=== PATIENT | male | born 1960 | race Caucasian/White ===

== ENCOUNTER → 2020-05-11 08:53 | Outpatient (CLI) | payer OTHER, SELFPAY ==
[2020-05-11 09:53] LABS: COVID19 -Nasal RAPID Negative (Negative)
== END ==
PROVIDERS: Visit Provider Nurse Practitioner
DX: Z20.822 Contact with and (suspected) exposure to COVID-19 (principal)
CPT/HCPCS: 87635

== ENCOUNTER 2021-03-07 14:58 | Emergency (ER) | payer OTHER, SELFPAY ==
[2021-03-07] VITALS (10 sets, daily range): BP systolic 115–158; BP diastolic 65–91; PULSE 43–54; RESP 10–19; TEMP 36.5; O2SAT 93–98; BMI 28.2
--- NOTE | 2021-03-07 15:32 | DI.RAD.S_ITS ---
PROCEDURE: XR CHEST 1V INDICATIONS: chest pain TECHNIQUE: One view of the chest was acquired. COMPARISON: None. FINDINGS: Surgical changes and devices: None. Lungs and pleura: No consolidation, pleural effusions or pneumothorax. Mediastinum: Mediastinal contours appear normal. Heart size is normal. Bones and chest wall: No suspicious bony lesions. Overlying soft tissues appear unremarkable. IMPRESSION: No acute cardiopulmonary abnormality. Dictated by: Federico Lockett M.D. on 03/07/2021 at 15:44 Approved by: Federico Lockett M.D. on 03/07/2021 at 15:46
[2021-03-07 15:58] LABS: Add Manual Diff / Slide Review NO; Basophils Absolute Auto 100 /uL (0-100); Basophils Percent Auto 1.4 % (0-2); Eosinophils Absolute Auto 300 /uL (0-450); Eosinophils Percent Auto 7.6 % (2-4); Hematocrit 37.6 % (41-53); Hemoglobin 12.8 g/dL (13.5-17.5); Lymphocytes Absolute Auto 1100 /uL (1100-4500); Mean Corpuscular HGB Conc 34.1 % (30-36); Mean Corpuscular Hemoglobin 31.3 PG (26-34); Monocytes Absolute Auto 400 /uL (0-900); Monocytes Percent Auto 11.9 % (3-14); Neutrophils Absolute Auto 1900 /uL (1500-7000); Neutrophils Percent Auto 51.1 % (50-75); Platelet Count 198 X10^3/uL (150-400); Red Blood Cell Count 4.09 X10^6/uL (4.5-5.9); Red Cell Distribution Width 13.3 % (11.6-14.8); White Blood Cell Count 3.8 X10^3/uL (4.5-11.0)
[2021-03-07 16:22] LABS: Alanine Aminotransferase 21 IU/L (<50); Albumin 4.1 g/dL (3.5-5.0); Albumin Globulin Ratio 1.3 (1.0-2.8); Alkaline Phosphatase 40 U/L (38-126); Aspartate Aminotransferase 27 IU/L (17-59); BUN Creatinine Ratio 23.9 (6-22); Bilirubin Total 0.4 mg/dL (0.2-1.3); Blood Urea Nitrogen 17 mg/dL (9-20); Calcium 9.5 mg/dL (8.4-10.2); Carbon Dioxide 27 mmol/L (22-32); Chloride 106 mmol/L (98-107); Creatine Kinase 107 U/L (55-170); Estimated Glomerular Filt Rate > 60.0 mL/min (>60); Globulin 3.1 g/dL (1.7-4.1); Glucose 114 mg/dL (80-110); HEMOLYSIS < 15 (0-50); Lipase 80 U/L (23-300); Magnesium 1.9 mg/dL (1.6-2.3); Potassium 3.9 mmol/L (3.4-5.1); Sodium 138 mmol/L (137-145); Total Protein 7.2 g/dL (6.3-8.2)
[2021-03-07 16:31] LABS: Troponin I < 0.012 ng/mL (0.01-0.034)
[2021-03-07 16:37] LABS: CKMB % Relative Index 1.3 % (1.5-5.0); Creatine Kinase MB 1.35 ng/mL (<2.37)
--- NOTE | 2021-03-07 18:54 | ED.ARRPALP ---
HPI - Arrhythmia/Palpitations General Chief Complaint: Arrhythmia/Palpitations Stated Complaint: IRREGULAR HEART BEAT Time Seen by Provider: 03/07/21 18:06 Source: patient Mode of arrival: Ambulatory Limitations: no limitations History of Present Illness HPI narrative: Patient is a 60-year-old male who is here for evaluation of palpitations. He recently returned from a vacation. Was tested for COVID less than 36 hours ago. He denies chest pain. Has had some shortness of breath with exertion but this is not all the time. He also feels like his heart rate has been fluctuating. Has not tried anything for his symptoms prior to arrival. The time of my evaluation he was not having symptoms. Related Data Home Medications Medication Instructions Recorded Confirmed No Known Home Medications 05/11/20 05/11/20 Allergies Allergy/AdvReac Type Severity Reaction Status Date / Time No Known Drug Allergies Allergy Unverified 05/11/20 09:25 Review of Systems Constitutional Constitutional: Denies fever(s) Cardiovascular Cardiovascular: Denies chest pain, Denies lightheadedness and Reports slow heart rate Comments: Palpitations Respiratory Respiratory: Reports as per HPI and Reports system reviewed and no additional complaints, except as documented Gastrointestinal Gastrointestinal: Reports system reviewed and no additional complaints, except as documented Musculoskeletal Musculoskeletal: Reports system reviewed and no additional complaints, except as documented Integumentary/Breasts Skin/Breast: Reports system reviewed and no additional complaints, except as documented Hematologic/Lymphatic On Anticoagulants: No Patient History Medical History No significant medical problems Social History Smoking Status: Never smoker Smoking Status: Never smoker Exam Initial Vital Signs Initial Vital Signs: Vital Signs Pulse Rate 52 L 03/07/21 15:30 Pulse Oximetry 96 03/07/21 15:30 Const General: cooperative, healthy appearing and comfortable HENMT Head: normal to inspection Resp Effort & Inspection: normal respiratory effort Cardio Rate: regular rate Rhythm: regular rhythm GI Inspection: normal to inspection Skin General: no rashes or lesions noted Neuro General: patient alert, patient awake, patient oriented x3 and moves all extremities Speech: speech normal Extrem General: normal to inspection and capillary refill normal Psych Appearance: grossly normal and well kempt Course Orders Ordered: ED Orders 01/03/22 15:32 XR chest 1V Stat EKG-12 Lead Stat 03/07/21 15:49 Complete Blood Count AUTO DIFF Stat Comprehensive Metabolic Panel Stat Lipase Stat Magnesium Stat Troponin & CK Cardiac Panel Stat Vital Signs Vital signs: Vital Signs - 8 hr 03/07/21 18:00 03/07/21 18:30 03/07/21 19:00 Pulse Rate 43 L 45 L 52 L Respiratory Rate 11 L 13 13 Blood Pressure 118/65 126/83 Pulse Oximetry 95 95 96 MDM - Arrhythmia/Palpitations Lab Data Attestation: I reviewed the patient's lab results. Result diagrams: 03/07/21 15:49 03/07/21 15:49 Labs: Lab Results 03/07/21 03/07/21 Range/Units 15:49 15:49 WBC 3.8 L (4.5-11.0) X10^3/uL RBC 4.09 L (4.5-5.9) X10^6/uL Hgb 12.8 L (13.5-17.5) g/dL Hct 37.6 L (41-53) % MCV 92.0 (80-100) fL MCH 31.3 (26-34) PG MCHC 34.1 (30-36) % RDW 13.3 (11.6-14.8) % Plt Count 198 (150-400) X10^3/uL Neut % (Auto) 51.1 (50-75) % Lymph % (Auto) 28.0 (25-40) % [place] % (Auto) 11.9 (3-14) % Eos % (Auto) 7.6 H (2-4) % Baso % (Auto) 1.4 (0-2) % Neut # (Auto) 1900 (0989-9046) /uL Lymph # (Auto) 1100 (7866-2638) /uL [place] # (Auto) 400 (0-900) /uL Eos # (Auto) 300 (0-450) /uL Baso # (Auto) 100 (0-100) /uL Sodium 138 (137-145) mmol/L Potassium 3.9 (3.4-5.1) mmol/L Chloride 106 (98-107) mmol/L Carbon Dioxide 27 (22-32) mmol/L BUN 17 (9-20) mg/dL Creatinine 0.71 (0.66-1.25) mg/dL Estimated GFR > 60.0 (>60) mL/min BUN/Creatinine Ratio 23.9 H (6-22) Glucose 114 H (80-110) mg/dL Calcium 9.5 (8.4-10.2) mg/dL Magnesium 1.9 (1.6-2.3) mg/dL Total Bilirubin 0.4 (0.2-1.3) mg/dL AST 27 (17-59) IU/L ALT 21 (<50) IU/L Alkaline Phosphatase 40 (38-126) U/L Total Creatine Kinase 107 (55-170) U/L CK-MB (CK-2) 1.35 (<2.37) ng/mL CK-MB (CK-2) Rel Index 1.3 L (1.5-5.0) % Troponin I < 0.012 (0.01-0.034) ng/mL Total Protein 7.2 (6.3-8.2) g/dL Albumin 4.1 (3.5-5.0) g/dL Globulin 3.1 (1.7-4.1) g/dL Albumin/Globulin Ratio 1.3 (1.0-2.8) Lipase 80 (23-300) U/L Imaging Data Chest x-ray: Radiologist's Impresson: [place] [address] XRay Report Signed Patient: Chano Bustos MR#: [id number] : 1960 Acct:[id number] Age/Sex: 60 / M Date of Service: 03/07/21 Loc: ED Accession Number: [id number] ?? Procedure: XR chest 1V Ordering Provider: Tram Ramos MD PROCEDURE:? XR CHEST 1V ? INDICATIONS:? chest pain ? TECHNIQUE:? One view of the chest was acquired.? ? COMPARISON:? None. ? FINDINGS:? ? Surgical changes and devices:? None.? ? Lungs and pleura:? No consolidation, pleural effusions or pneumothorax.? ? Mediastinum:? Mediastinal contours appear normal.? Heart size is normal.? ? Bones and chest wall:? No suspicious bony lesions.? Overlying soft tissues appear unremarkable.? ? IMPRESSION:? No acute cardiopulmonary abnormality. ? ? Dictated by: Federico Lockett M.D. on 03/07/2021 at 15:44 ? ? Approved by: Federico Lockett M.D. on 03/07/2021 at 15:46? ECG Data Attestation: I personally reviewed and interpreted this ECG as follows: Interpretation: Sinus rhythm Frequent PVCs First-degree AV block with a ME interval of 252 milliseconds Ventricular rate is [address] T wave changes MDM Narrative Medical decision making narrative: Blood pressure unremarkable. Does have frequent PVCs on his EKG which is most likely the cause of his symptoms. This most likely is the reason for his heart rate that fluctuates between the 40s and the 70s. Low suspicion for ACS. Low suspicion for pulmonary embolism. I feel that we can hold on further workup for now. I did discuss the frequent PVCs with the patient. Next workup needed is a Holter monitor. I discussed this with him. We discussed return precautions and follow-up instructions. He expressed understanding and agreement. Discharge Plan Departure Patient Disposition: Home Clinical Impression: Palpitations, Ventricular premature beats Instructions: Premature Ventricular Beats, Arrhythmias Activity Restrictions/Additional Instructions: I do recommend you continue all of your medications as directed. Contact your primary doctor to discuss the indications for a Holter monitor. Return to the emergency department for any new or worsening symptoms like we discussed. Prescriptions: No Action No Known Home Medications 0RF
== END 2021-03-07 19:25 | disposition home or self-care (01) ==
PROVIDERS: Emergency Medicine; Emergency Provider Emergency Medicine
DX: R00.2 Palpitations (principal); I49.3 Ventricular premature depolarization
CPT/HCPCS: 36415; 71045; 80053; 82550; 82553; 83690; 83735; 84484; 85025; 93005; 99284

== ENCOUNTER → 2021-10-31 14:23 | Outpatient (CLI) | payer OTHER, SELFPAY ==
[2021-10-31 14:52] LABS: Hematocrit 40.3 % (41-53); Hemoglobin 14.1 g/dL (13.5-17.5); Mean Corpuscular Hemoglobin 32.3 PG (26-34); Mean Corpuscular Volume 92.2 fL (80-100); Platelet Count 201 X10^3/uL (150-400); Red Blood Cell Count 4.37 X10^6/uL (4.5-5.9); Red Cell Distribution Width 13.1 % (11.6-14.8); White Blood Cell Count 4.6 X10^3/uL (4.5-11.0)
[2021-10-31 15:04] LABS: Alanine Aminotransferase 27 IU/L (<50); Albumin 4.2 g/dL (3.5-5.0); Albumin Globulin Ratio 1.2 (1.0-2.8); Alkaline Phosphatase 42 U/L (38-126); Aspartate Aminotransferase 29 IU/L (17-59); BUN Creatinine Ratio 19.5 (6-22); Bilirubin Total 0.5 mg/dL (0.2-1.3); Blood Urea Nitrogen 16 mg/dL (9-20); Carbon Dioxide 28 mmol/L (22-32); Chloride 100 mmol/L (98-107); Cholesterol 197 mg/dL (140-199); Estimated Glomerular Filt Rate > 60 mL/min (>60); Globulin 3.4 g/dL (1.7-4.1); Glucose 119 mg/dL (80-110); HDL Cholesterol 46 mg/dL (40-60); HEMOLYSIS < 15 (0-50); LDL Cholesterol Calculated 102 mg/dL (<100); Potassium 4.2 mmol/L (3.4-5.1); Sodium 136 mmol/L (137-145); Total Protein 7.6 g/dL (6.3-8.2); Triglycerides 243 mg/dL (35-150)
[2021-10-31 15:10] LABS: Hemoglobin A1C% w Est Avg Glu 6.2 % (4.0-6.0)
[2021-10-31 15:34] LABS: Prostate Specific Antigen 1.01 ng/mL (0.10-4.00)
[2021-10-31 15:35] LABS: TSH w/ Reflex to FT4 1.94 uIU/mL (0.47-4.68)
[2021-10-31 16:02] LABS: Microalbumin Urine Random 0.7 mg/dL (0-1.6)
[2021-10-31 16:03] LABS: Creatinine Urine Random 71.6 mg/dL; Microalbumi Creatinin Ratio Ur 9.7 ug/mg CR (<30)
== END ==
PROVIDERS: PCP Internal Medicine; Referring Provider Internal Medicine; Visit Provider Internal Medicine
DX: E11.69 Type 2 diabetes mellitus with other specified complication (principal); E78.2 Mixed hyperlipidemia; E78.5 Hyperlipidemia, unspecified; I10 Essential (primary) hypertension; N13.8 Other obstructive and reflux uropathy; N40.1 Benign prostatic hyperplasia with lower urinary tract symptoms
CPT/HCPCS: 36415; 80053; 80061; 82043; 82570; 83036; 84153; 84443; 85027

== ENCOUNTER → 2022-02-01 12:24 | Outpatient (CLI) | payer OTHER, SELFPAY ==
[2022-02-01 12:53] LABS: Hemoglobin A1C% w Est Avg Glu 6.4 % (4.0-6.0)
== END ==
PROVIDERS: PCP Internal Medicine; Referring Provider Internal Medicine; Visit Provider Internal Medicine
DX: E11.69 Type 2 diabetes mellitus with other specified complication (principal); E78.5 Hyperlipidemia, unspecified
CPT/HCPCS: 36415; 83036

== ENCOUNTER → 2022-03-10 08:24 | Outpatient (CLI) | payer OTHER, SELFPAY ==
--- NOTE | 2022-03-10 08:27 | DI.RAD.S_ITS ---
PROCEDURE: XR FOOT RT MIN 3V INDICATIONS: Baby toe injury TECHNIQUE: 3 views of the foot were acquired. COMPARISON: None. FINDINGS: Bones: No fractures or dislocations. No suspicious bony lesions. Soft tissues: No tibiotalar joint effusion. Achilles tendon appears normal. IMPRESSION: No acute osseous abnormality. Dictated by: Mario Pleitez M.D. on 03/10/2022 at 12:45 Approved by: Mario Pleitez M.D. on 03/10/2022 at 12:46
== END ==
PROVIDERS: PCP Internal Medicine; Referring Provider Internal Medicine; Visit Provider Internal Medicine
DX: S99.921A Unspecified injury of right foot, initial encounter (principal); X58.XXXA Exposure to other specified factors, initial encounter
CPT/HCPCS: 73630

== ENCOUNTER 2022-08-08 06:11 | Emergency (ER) | payer OTHER, SELFPAY ==
[2022-08-08 06:13] VITALS: BP 141/83; PULSE 71; RESP 16; TEMP 37; O2SAT 99; BMI 28.5
--- NOTE | 2022-08-08 06:26 | DI.RAD.S_ITS ---
PROCEDURE: XR KNEE LT 3V INDICATIONS: trauma TECHNIQUE: 3 views of the knee were acquired. COMPARISON: None. FINDINGS: Bones: No acute fracture seen. There is patella [place] with moderate overlying soft tissue edema of the anterior left knee. Tricompartmental degenerative changes. Chondrocalcinosis. Soft tissues: Very small joint effusion. No suspicious soft tissue calcifications. IMPRESSION: Anterior left knee soft tissue swelling with patella [place]. Findings are suspicious for probable rupture of the patellar tendon. No fracture seen. No significant discrepancy with the manager night radiology preliminary report. Dictated by: Ulises Carpio M.D. on 08/08/2022 at 8:29 Approved by: Ulises Carpio M.D. on 08/08/2022 at 8:31
--- NOTE | 2022-08-08 06:29 | ED.GENADULT ---
HPI - General Adult <Tram Ramos MD - Last Filed: 08/12/22 05:48> General Chief complaint: Extremity Injury, Lower Stated complaint: left knee injury Time Seen by Provider: 08/08/22 06:26 History of Present Illness HPI narrative: 62-year-old gentleman with a history of diabetes, BPH, asthma and hyperlipidemia who was walking down the stairs this morning his foot slipped off the bottom stair and he fell forward landing on his knee on the landing (one-step difference). Significant pain to the area, unable to bear weight and feels that the knee is entirely unstable. He comes in with a beautifully hand made splint appropriately supporting the knee. He has no other complaints today and no other trauma related complaints from his fall this morning. Related Data Home Medications Medication Instructions Recorded Confirmed cholecalciferol (vitamin D3) 25 25 mcg PO DAILY 10/27/21 08/02/22 mcg (1,000 unit) capsule desvenlafaxine succinate 25 mg 25 mg PO DAILY 10/27/21 08/02/22 tablet,extended release 24 hr folic acid 1 mg tablet 1 mg PO DAILY 10/27/21 08/02/22 methylcellulose (laxative) 500 mg 500 mg PO DAILY 10/27/21 08/02/22 tablet (Fiber Laxative (methylcellulose)) omega-3 fatty acids 1,000 mg 1,000 mg PO DAILY 10/27/21 08/02/22 capsule albuterol sulfate 90 mcg/actuation 2 puff inhalation Q4-6H PRN 10/31/21 08/02/22 aerosol inhaler shortness of breath or wheezing ketoconazole 2 % topical cream 1 applic topical BID PRN 03/10/22 08/02/22 rosuvastatin 5 mg tablet 5 mg PO DAILY 08/02/22 08/02/22 Previous Rx's Medication Instructions Recorded metformin 500 mg tablet,extended 1,000 mg PO DAILY #180 tabs 05/11/22 release 24 hr omeprazole 20 mg capsule,delayed 20 mg PO DAILY #90 caps 05/11/22 release finasteride 5 mg tablet 5 mg PO DAILY #90 tabs 07/12/22 hydrocodone 5 mg-acetaminophen 325 1 tab PO Q6H PRN pain #14 tabs 08/08/22 mg tablet Allergies Allergy/AdvReac Type Severity Reaction Status Date / Time No Known Drug Allergies Allergy Verified 08/02/22 10:56 Review of Systems <Tram Ramos MD - Last Filed: 08/12/22 05:48> Review of Systems Narrative: Pertinent positive and negative findings as per HPI Patient History <Tram Ramos MD - Last Filed: 08/12/22 05:48> Medical History Allergic rhinitis Asthma, mild intermittent BPH w urinary obs/LUTS Cardiac arrhythmia Celiac disease Cervical spine disease Chronic back pain Depression, major, recurrent DM type 2 with diabetic dyslipidemia (~2017) Eczema Encounter for general adult medical examination without abnormal findings Essential hypertension Generalized anxiety disorder GERD without esophagitis Hearing loss Herpes Idiopathic neuropathy Mixed hyperlipidemia No significant medical problems Osteoarthritis Overweight Pterygium of right eye Rotator cuff tear, left Slow transit constipation Surgical History Anesthesia History of ankle surgery History of neck surgery (~1996) Family History Father Congestive heart failure Sister Hyperlipidemia Sister Diabetes mellitus Hyperlipidemia Mental health problem Grandfather History of heart disease Grandmother Cancer Diabetes mellitus Grandfather Stroke Grandmother History of heart disease Social History details: (Sherri), retired software implementation project manager Smoking Status: Never smoker Smoking Status: Never smoker Exam <Tram Ramos MD - Last Filed: 08/12/22 05:48> Initial Vital Signs Initial Vital Signs: Vital Signs Temperature 98.6 F 08/08/22 06:13 Pulse Rate 71 08/08/22 06:13 Respiratory Rate 16 08/08/22 06:13 Blood Pressure 141/83 H 08/08/22 06:13 Pulse Oximetry 99 08/08/22 06:13 Oxygen Delivery Method Room Air 08/08/22 06:13 General: Alert appropriate in no acute distress Respiratory: Able to speak in full sentences, no obvious respiratory distress Skin: No obvious rashes, warm and dry Neurologic: Grossly intact no obvious asymmetries or abnormalities Psych: appropriate insight and affect, cooperative Extremity: Left knee with significant deformity. Appears to have hemarthrosis, knee is unstable, patella is high-riding. There is no tenderness in the thigh. Range of motion is not attempted. <Tamia King DO - Last Filed: 08/08/22 08:10> Initial Vital Signs Initial Vital Signs: Vital Signs Temperature 98.6 F 08/08/22 06:13 Pulse Rate 71 08/08/22 06:13 Respiratory Rate 16 08/08/22 06:13 Blood Pressure 141/83 H 08/08/22 06:13 Pulse Oximetry 99 08/08/22 06:13 Oxygen Delivery Method Room Air 08/08/22 06:13 Course <Tram Ramos MD - Last Filed: 08/12/22 05:48> Orders Ordered: Discontinued Medications Acetaminophen (Acetaminophen 325 Mg Tablet) 325 mg PO NOW ONE Stop: 08/08/22 06:27 Last Admin: 08/08/22 06:30 Dose: 325 mg Documented By: Hydrocodone Bitart/Acetaminophen (Hydrocodone/Acet 5/325 Tablet) 1 tab PO NOW ONE Stop: 08/08/22 07:42 Last Admin: 08/08/22 07:47 Dose: 1 tab Documented By: AT Ibuprofen (Ibuprofen 400 Mg Tablet) 400 mg PO NOW ONE Stop: 08/08/22 06:27 Last Admin: 08/08/22 06:30 Dose: 400 mg Documented By: Vital Signs Vital signs: Vital Signs - 8 hr 08/08/22 06:13 Temperature 98.6 F Pulse Rate 71 Respiratory Rate 16 Blood Pressure 141/83 H Pulse Oximetry 99 Oxygen Delivery Method Room Air <Tamia King DO - Last Filed: 08/08/22 08:10> Orders Ordered: Discontinued Medications Acetaminophen (Acetaminophen 325 Mg Tablet) 325 mg PO NOW ONE Stop: 08/08/22 06:27 Last Admin: 08/08/22 06:30 Dose: 325 mg Documented By: Hydrocodone Bitart/Acetaminophen (Hydrocodone/Acet 5/325 Tablet) 1 tab PO NOW ONE Stop: 08/08/22 07:42 Last Admin: 08/08/22 07:47 Dose: 1 tab Documented By: AT Ibuprofen (Ibuprofen 400 Mg Tablet) 400 mg PO NOW ONE Stop: 08/08/22 06:27 Last Admin: 08/08/22 06:30 Dose: 400 mg Documented By: Vital Signs Vital signs: Vital Signs - 8 hr 08/08/22 06:13 Temperature 98.6 F Pulse Rate 71 Respiratory Rate 16 Blood Pressure 141/83 H Pulse Oximetry 99 Oxygen Delivery Method Room Air Medical Decision Making <Tram Ramos MD - Last Filed: 08/12/22 05:48> [facility] Narrative Medical decision making narrative: CC: Fall landing on left knee. New problem uncertain prognosis Complicating co-morbidities: Diabetes, hyperlipidemia Data collected from: patient, ( is retired physician) Medical records reviewed: Primary care notes from August 02 reviewed. Differential considered: Patellar fracture, rupture of ACL, rupture of PCL, tibial plateau fracture Exam documented above, pertinent findings include: Pain in significant deformity to the knee. No abrasions or lacerations. This is a closed injury Lab Test results independently reviewed as above. Pertinent findings: Imaging studies independently reviewed: Consultations: Treatments: Ibuprofen and Tylenol Re-evaluations: Discussion: <Tamia King DO - Last Filed: 08/08/22 08:10> Imaging Data Extremity x-ray #1: My Impression: No fracture Radiologist's Impression: Preliminary report: Patella [place] with probable rupture a patellar tendon. Prepatellar soft tissue swelling. No fractures demonstrated. [facility] Narrative Medical decision making narrative: CC: Fall landing on left knee. New problem uncertain prognosis Complicating co-morbidities: Diabetes, hyperlipidemia Data collected from: patient, ( is retired physician) Medical records reviewed: Primary care notes from August 02 reviewed. Differential considered: Patellar fracture, rupture of ACL, rupture of PCL, tibial plateau fracture Exam documented above, pertinent findings include: Pain in significant deformity to the knee. No abrasions or lacerations. This is a closed injury Lab Test results independently reviewed as above. Pertinent findings: Imaging studies independently reviewed: Consultations: Treatments: Ibuprofen and Tylenol Re-evaluations: Discussion: Patient signed out to me by Dr. Ramos I have seen evaluated patient myself. X-ray is negative for any fracture exam and x-ray consistent with rupture of patella tendon. He is neurovascularly intact limited knee flexion. Patient is placed in knee immobilizer given crutches and directed for orthopedic follow-up. Discharge Plan Departure Patient Disposition: Home Clinical Impression: Patellar tendon rupture Instructions: Patellar Tendinopathy Activity Restrictions/Additional Instructions: *You have been diagnosed with patellar tendon rupture *What to do: At this time wear knee immobilizer and use crutches as needed. Elevate and ice. This will need surgical repair. *Continue to take medications as directed [place] 1 tablet every 6 hours if needed for severe pain Motrin 600 mg every 6 hours if needed for [id number] pain *Follow up with your primary care provider in 2-3 days or call [phone] *Return to ER if you should have increasing pain numbness tingling weakness redness fever or any new, worsening or concerning symptoms CONTROLLED SUBSTANCE DISCHARGE (Narcotoic/benzodiazepine/Flexeril/Phenergan) 1. You have been prescribed narcotic medications, it does have acetaminophen/Tylenol/paracetamol in it, DO NOT TAKE MORE THAN 4,00mg in 24 hours of Tylenol. TRAMADOL DOES NOT CONTAIN TYLENOL 2. Please understand that we cannot provide further refills of narcotics, benzodiazepines or controlled substances through the ED and her pain management will need to be through your provider. 3. While on these medications you cannot drive or operate heavy machinery. 4. You cannot sign legal documents or perform any duties such as this. 5. As long as you're taking opiate pain medications he should also be taking a stool softener such as Colace, Dulcolax, MiraLAX or prune juice, to help avoid constipation. Prescriptions: New hydrocodone-acetaminophen 5-325 mg tablet 1 tab PO Q6H PRN (Reason: pain) Qty: 14 0RF No Action desvenlafaxine succinate 25 mg tablet extended release 24 hr 25 mg PO DAILY cholecalciferol (vitamin D3) 25 mcg (1,000 unit) capsule 25 mcg PO DAILY folic acid 1 mg tablet 1 mg PO DAILY omega-3 fatty acids 1,000 mg capsule 1,000 mg PO DAILY Fiber Laxative (methylcellulo) 500 mg tablet 500 mg PO DAILY metformin 500 mg tablet extended release 24 hr 1,000 mg PO DAILY Qty: 180 3RF omeprazole 20 mg capsule,delayed release(DR/EC) 20 mg PO DAILY Qty: 90 3RF finasteride 5 mg tablet 5 mg PO DAILY Qty: 90 0RF albuterol sulfate 90 mcg/actuation HFA aerosol inhaler 2 puff inhalation Q4-6H PRN (Reason: shortness of breath or wheezing) rosuvastatin 5 mg tablet 5 mg PO DAILY ketoconazole 2 % cream 1 applic topical BID PRN Referrals: [facility] [Provider Group] Sean Veronica MD [Primary Care Provider] - Stand Alone Forms: Patient Portal/API
[2022-08-08] MEDS: IBUPROFEN 400 MG TABLET PO (06:30)
[2022-08-08] MEDS: ACETAMINOPHEN 325 MG TABLET PO (06:30)
[2022-08-08] MEDS: HYDROCODONE/ACET 5/325 TABLET 1 TAB PO (07:47)
[2022-08-08 07:51] VITALS: BP 134/69; PULSE 50; RESP 18; O2SAT 99
== END 2022-08-08 08:10 | disposition home or self-care (01) ==
PROVIDERS: Emergency Provider Emergency Medicine; PCP Internal Medicine
DX: S76.112A Strain of left quadriceps muscle, fascia and tendon, initial encounter (principal); W10.9XXA Fall (on) (from) unspecified stairs and steps, initial encounter
CPT/HCPCS: 73562; 99283

== ENCOUNTER 2022-08-14 08:02 | Emergency (ER) | payer OTHER, SELFPAY ==
--- NOTE | 2022-08-14 08:16 | DI.RAD.S_ITS ---
PROCEDURE: XR ABDOMEN MIN 2V INDICATIONS: constipation TECHNIQUE: 2 views of the abdomen were acquired. COMPARISON: None. FINDINGS: Surgical changes and devices: None. Bowel: No pneumoperitoneum. Large rectal fecal debris. Air-fluid levels in most of the colon and prominent small bowel with air-fluid levels. Question ileus. Soft tissues: No masses; visualized solid organ contours appear normal in size. No suspicious abdominal calcifications. Bones: No suspicious bony abnormalities. IMPRESSION: Large rectal fecal debris. Question ileus pattern. Dictated by: Tye Romero M.D. on 08/14/2022 at 8:50 Approved by: Tye Romero M.D. on 08/14/2022 at 8:52
[2022-08-14 08:18] VITALS: BP 133/69; PULSE 80; RESP 16; TEMP 36.8; O2SAT 97; BMI 28.5
== END 2022-08-14 10:42 | disposition left against medical advice (07) ==
PROVIDERS: Emergency Provider Emergency Medicine; PCP Internal Medicine
DX: K59.00 Constipation, unspecified (principal)
CPT/HCPCS: 74019; 99283

== ENCOUNTER → 2022-11-29 15:16 | Outpatient (CLI) | payer OTHER, SELFPAY ==
[2022-11-29 15:55] LABS: Appearance Urine UA CLEAR; Bilirubin Urine UA NEGATIVE (NEGATIVE); Color Urine UA YELLOW; Glucose Urine UA NEGATIVE (Negative); Ketones Urine UA NEGATIVE (NEGATIVE); Leukocyte Esterase Urine UA NEGATIVE (NEGATIVE); Nitrite Urine UA NEGATIVE (Negative); Occult Blood Urine UA NEGATIVE (Negative); Protein Urine UA NEGATIVE (Negative); Specific Gravity Urine UA 1.015 (1.000-1.035); Urobilinogen Urine UA 0.2 E.U./dL (0.2); pH Urine UA 5.5 (4.5-8.0)
[2022-11-29 17:12] LABS: Hemoglobin A1C% w Est Avg Glu 5.9 % (4.0-6.0)
[2022-11-29 17:25] LABS: BUN Creatinine Ratio 17.5 (6-22); Blood Urea Nitrogen 14 mg/dL (9-20); Calcium 10.2 mg/dL (8.4-10.2); Carbon Dioxide 28 mmol/L (22-32); Chloride 99 mmol/L (98-107); Estimated Glomerular Filt Rate > 60 mL/min (>60); Glucose 121 mg/dL (80-110); HEMOLYSIS < 15 (0-50); Potassium 4.3 mmol/L (3.4-5.1); Sodium 138 mmol/L (137-145)
[2022-11-29 17:54] LABS: Prostate Specific Antigen 0.964 ng/mL (0.10-4.00)
[2022-11-29 22:29] LABS: Bacteria Urine None Seen; Culture Indicated Urine Cult Not Indicated; RBC Urine None Seen (0-5/HPF); Squamous Epithelial Cell Urine None Seen (0-5/HPF); WBC Urine None Seen (0-5/HPF)
== END ==
PROVIDERS: PCP Internal Medicine; Referring Provider Internal Medicine; Visit Provider Internal Medicine
DX: E11.69 Type 2 diabetes mellitus with other specified complication (principal); E78.5 Hyperlipidemia, unspecified; N13.8 Other obstructive and reflux uropathy; N40.1 Benign prostatic hyperplasia with lower urinary tract symptoms
CPT/HCPCS: 36415; 80048; 81001; 83036; 84153

== ENCOUNTER → 2023-02-09 10:45 | Outpatient (CLI) | payer OTHER, SELFPAY ==
[2023-02-09 15:28] LABS: Creatinine Urine Random 69.4 mg/dL
[2023-02-09 15:34] LABS: Microalbumin Urine Random < 0.6 mg/dL (0-1.6)
== END ==
PROVIDERS: PCP Internal Medicine; Referring Provider Internal Medicine; Visit Provider Internal Medicine
DX: E11.69 Type 2 diabetes mellitus with other specified complication (principal); E78.5 Hyperlipidemia, unspecified
CPT/HCPCS: 82043; 82570

== ENCOUNTER 2023-05-22 13:14 | Day surgery (SDC) | payer MEDICARE, OTHER, SELFPAY ==
--- NOTE | 2023-05-22 | PATH_ITS ---
[facility] Accession Number: [id number] No. of containers..01 Tissue . 01 Material submitted: . colon - ASCENDING POLYP . 01 Diagnosis: ASCENDING COLON POLYP: Tubular adenoma. MRV 05/25/2023 1423 Local . 01 Electronically signed: . Darrick Magaña MD, PhD, Pathologist NPI- [id number] . 01 Gross description: . ASCENDING POLYP: Received in formalin is 1 fragment(s) of yanes, soft tissue measuring 0.7 x 0.5 x 0.5 cm submitted entirely in 1 cassette(s) /QIAN 05/23/20232006 Local . 01 Pathologist provided ICD-10: D12.2 . 01 CPT . 924167 Specimen Comment: A courtesy copy of this report has been sent to [phone] Performed at: 01 [facility] [address] [place] [address] [id number] MD Jorge Sharma MD Phone: [phone]
[2023-05-22 13:29] VITALS: BP 122/73; PULSE 67; RESP 18; TEMP 36.3; O2SAT 97
--- NOTE | 2023-05-22 13:38 | P.HP_ITS ---
History of Present Illness History of Present Illness Date Patient Seen: 05/22/23 Time Patient Seen: 13:38 Chief complaint: Screening Colonoscopy Narrative: 62-year-old man personal history of colonic polyps here for screening colonoscopy. Last colonoscopy 5 years ago. No abdominal concerns today. No family history of intestinal malignancy. [facility] Medical History Post-void dribbling Urinary retention History of colonic polyps Slow transit constipation Hearing loss Eczema Osteoarthritis Rotator cuff tear, left Chronic back pain Cervical spine disease Herpes Cardiac arrhythmia Generalized anxiety disorder Pterygium of right eye Celiac disease Overweight Allergic rhinitis Idiopathic neuropathy Asthma, mild intermittent BPH w urinary obs/LUTS Depression, major, recurrent GERD without esophagitis Mixed hyperlipidemia Essential hypertension DM type 2 with diabetic dyslipidemia (~2017) No significant medical problems Surgical History Anesthesia History of neck surgery (~1996) History of ankle surgery Family History Father Congestive heart failure Sister Hyperlipidemia Sister Diabetes mellitus Hyperlipidemia Mental health problem Grandfather History of heart disease Grandmother Cancer Diabetes mellitus Grandfather Stroke Grandmother History of heart disease Social History details: (Sherri), retired [employer] Smoking Status: Never smoker alcohol intake: current Meds Home Medications and Allergies Home Medications Medication Instructions Recorded Confirmed Type cholecalciferol (vitamin D3) 25 25 mcg PO DAILY 10/27/21 05/21/23 History mcg (1,000 unit) capsule desvenlafaxine succinate 25 mg 25 mg PO DAILY 10/27/21 05/21/23 History tablet,extended release 24 hr folic acid 1 mg tablet 1 mg PO DAILY 10/27/21 05/21/23 History methylcellulose (laxative) 500 mg 500 mg PO DAILY 10/27/21 05/21/23 History tablet (Fiber Laxative (methylcellulose)) omega-3 fatty acids 1,000 mg 1,000 mg PO DAILY 10/27/21 05/21/23 History capsule albuterol sulfate 90 mcg/actuation 2 puff inhalation Q4-6H PRN 10/31/21 05/22/23 History aerosol inhaler shortness of breath or wheezing ketoconazole 2 % topical cream 1 applic topical BID PRN 03/10/22 05/21/23 History metformin 500 mg tablet,extended 1,000 mg (2 x 500 mg) PO DAILY 05/11/22 05/22/23 Rx release 24 hr #180 tabs hydrocodone 5 mg-acetaminophen 325 1 tab PO Q6H PRN pain #14 tabs 08/08/22 05/21/23 Rx mg tablet finasteride 5 mg tablet 5 mg PO DAILY #90 tabs 10/13/22 05/21/23 Rx rosuvastatin 5 mg tablet 5 mg PO DAILY #90 tabs 10/17/22 05/21/23 Rx tamsulosin 0.4 mg capsule 0.4 mg PO BEDTIME #90 caps 11/29/22 05/21/23 Rx sodium,potassium,mag sulfates 17.5 See Rx Instructions PO .COMPLEX 04/12/23 05/21/23 Rx gram-3.13 gram-1.6 gram oral soln #354 mL (Suprep Bowel Prep Kit) Allergies Allergy/AdvReac Type Severity Reaction Status Date / Time hydrocodone AdvReac Nausea Verified 05/22/23 13:28 Exam Vital Signs (past 8 hours): - 05/22/23 13:29 Temperature 97.4 F L Pulse Rate 67 Respiratory Rate 18 Blood Pressure 122/73 Pulse Oximetry 97 Oxygen Delivery Method Room Air Oxygen Delivery Method Room Air Narrative Exam Narrative: General adult man alert oriented no acute distress Chest nonlabored respiration Extremities warm well perfused Assessment & Plan Assessment & Plan narrative: The patient requires colorectal screening and colonoscopy is recommended. Technical details were discussed. Risks, benefits, alternatives explained. Risks including but not limited to myocardial infarction, aspiration, bleeding, pain, missed lesion, incomplete examination, need for further radiographic studies, colonic perforation, and need for major abdominal surgery were discussed. All questions were answered to their satisfaction, and they are in agreement with this plan.
[2023-05-22] MEDS: LACTATED RINGERS 1,000 ML 42 ML IV (13:41)
[2023-05-22 14:29] VITALS: BP 111/62; PULSE 60; RESP 12; TEMP 36.8; O2SAT 97
--- NOTE | 2023-05-22 14:30 | P.OP.COLON_ITS ---
Operative Date/Time/Diagnoses Date of procedure: 05/22/23 Time of procedure: 14:30 Pre-op diagnosis: Colorectal screening Procedure & Clinicians Study performed: Colonoscopy and polypectomy Same procedure as scheduled: Yes Indications: Colorectal screening Surgeon: Martinez Sheffield Procedure Notes Procedure in detail: The history and physical was performed/updated and the patient is ASA class is 2. The procedure was discussed in detail with the patient. Potential risks complications including infection, bleeding, missed diagnosis, perforation, need for surgery, and were explained. Their questions were answered and informed consent was obtained. Patient was brought to the procedure room and placed standard monitoring equipment. The patient's vital signs were monitored continuously throughout the entire procedure. Prior to starting time-out was performed. The patient was placed in the left lateral recumbent position. Procedural sedation was administered by anesthesia. Examination began with a thorough inspection of the perianal area there was no evidence of fissures, fistulae, external hemorrhoids or cutaneous malignancy. The colonoscopy scope was then placed into the anal canal and was advanced to the cecum, which was identified by the ileocecal valve, the appendiceal orifice and the confluence of the taenia. The scope was then slowly withdrawn examining colon thoroughly in all directions, irrigating it of any residual stool. The scope was retroflexed within the rectum The patient tolerated the procedure well. They will be discharged once criteria are met. The prep was of good/excellent quality. The withdrawl time was 7 mi nutes. FINDINGS * Ascending colon-at the juncture of the ascending colon and cecum there was a 8 mm polyp which was removed with cold snare in its entirety. * Alcantara diverticula * Internal hemorrhoids Specimen(s): other (Ascending colon polyp) Impression: Colonic polyp x1 Post-procedure Plan for aftercare: Follow-up is dependent on pathology findings likely 5 years. Disposition: same day surgery
[2023-05-22 14:35] VITALS: BP 105/65; PULSE 54; RESP 18; O2SAT 94
[2023-05-22 14:40] VITALS: BP 110/75; PULSE 59; RESP 20; O2SAT 95
[2023-05-22 14:45] VITALS: BP 116/76; PULSE 53; RESP 14; TEMP 36.7; O2SAT 94
== END 2023-05-22 14:58 | disposition home or self-care (01) ==
PROVIDERS: PCP Internal Medicine; Referring Provider Surgery; Visit Provider Surgery
PROC: 0DJD8ZZ Inspection of Lower Intestinal Tract, Via Natural or Artificial Opening Endoscopic (ICD-10-PCS; CPT 45378; principal; 2023-05-22 14:15)
DX: Z12.11 Encounter for screening for malignant neoplasm of colon (principal); K64.8 Other hemorrhoids; K57.30 Diverticulosis of large intestine without perforation or abscess without bleeding; D12.2 Benign neoplasm of ascending colon
CPT/HCPCS: 45385; J2704

== ENCOUNTER → 2023-10-22 10:58 | Outpatient (CLI) | payer MEDICARE, OTHER, SELFPAY ==
[2023-10-22 12:04] LABS: Hemoglobin A1C% w Est Avg Glu 5.9 % (4.0-6.0)
[2023-10-22 12:22] LABS: Aspartate Aminotransferase 28 IU/L (17-59); Blood Urea Nitrogen 15 mg/dL (9-20); Calcium 9.5 mg/dL (8.4-10.2); Carbon Dioxide 25 mmol/L (22-32); Chloride 103 mmol/L (98-107); Cholesterol 178 mg/dL (140-199); Estimated Glomerular Filt Rate > 60 mL/min (>60); Glucose 112 mg/dL (80-110); HDL Cholesterol 50 mg/dL (40-60); HEMOLYSIS < 15 (0-50); LDL Cholesterol Calculated 106 mg/dL (<100); Potassium 4.4 mmol/L (3.4-5.1); Sodium 136 mmol/L (137-145); Triglycerides 112 mg/dL (35-150)
== END ==
LOC: LAB 10:59
PROVIDERS: PCP Internal Medicine; Referring Provider Internal Medicine; Visit Provider Internal Medicine
DX: E11.69 Type 2 diabetes mellitus with other specified complication (principal); E78.2 Mixed hyperlipidemia; E78.5 Hyperlipidemia, unspecified
CPT/HCPCS: 36415; 80048; 80061; 83036; 84450

== ENCOUNTER → 2024-02-19 15:18 | Outpatient (CLI) | payer MEDICARE, OTHER, SELFPAY ==
[2024-02-19 16:42] LABS: Creatinine Urine Random 58.22 mg/dL
[2024-02-19 16:47] LABS: Microalbumin Urine Random < 0.6 mg/dL (0-1.6)
[2024-02-19 17:02] LABS: Aspartate Aminotransferase 32 IU/L (17-59); BUN Creatinine Ratio 16.7 (6-22); Blood Urea Nitrogen 14 mg/dL (9-20); Calcium 9.7 mg/dL (8.4-10.2); Carbon Dioxide 27 mmol/L (22-32); Chloride 102 mmol/L (98-107); Cholesterol 183 mg/dL (140-199); Estimated Glomerular Filt Rate > 60 mL/min (>60); Glucose 128 mg/dL (80-110); HDL Cholesterol 51 mg/dL (40-60); HEMOLYSIS < 15 (0-50); LDL Cholesterol Calculated 86 mg/dL (<100); Potassium 4.3 mmol/L (3.4-5.1); Sodium 135 mmol/L (137-145); Triglycerides 228 mg/dL (35-150)
== END ==
PROVIDERS: PCP Internal Medicine; Referring Provider Internal Medicine; Visit Provider Internal Medicine
DX: E11.69 Type 2 diabetes mellitus with other specified complication (principal); E78.5 Hyperlipidemia, unspecified; E78.2 Mixed hyperlipidemia; N40.1 Benign prostatic hyperplasia with lower urinary tract symptoms; N13.8 Other obstructive and reflux uropathy
CPT/HCPCS: 80048; 80061; 82043; 82570; 83036; 84450

== ENCOUNTER → 2024-05-01 17:00 | Outpatient (CLI) | payer MEDICARE, OTHER, SELFPAY ==
[2024-05-01 17:55] LABS: Hemoglobin A1C% w Est Avg Glu 5.4 % (4.0-6.0)
[2024-05-01 18:04] LABS: BUN Creatinine Ratio 18.7 (6-22); Blood Urea Nitrogen 14 mg/dL (9-20); Calcium 9.7 mg/dL (8.4-10.2); Carbon Dioxide 26 mmol/L (22-32); Chloride 101 mmol/L (98-107); Estimated Glomerular Filt Rate > 60 mL/min (>60); Glucose 105 mg/dL (80-110); HEMOLYSIS < 15 (0-50); Potassium 4.2 mmol/L (3.4-5.1); Sodium 137 mmol/L (137-145)
== END ==
LOC: LAB 17:02
PROVIDERS: PCP Internal Medicine; Referring Provider Internal Medicine; Visit Provider Internal Medicine
DX: E11.69 Type 2 diabetes mellitus with other specified complication (principal); E78.5 Hyperlipidemia, unspecified
CPT/HCPCS: 36415; 80048; 83036

== ENCOUNTER → 2024-08-19 08:25 | Outpatient (CLI) | payer MEDICARE, OTHER, SELFPAY ==
[2024-08-19 09:48] LABS: Hemoglobin A1C% w Est Avg Glu 5.5 % (4.0-6.0)
[2024-08-19 10:07] LABS: BUN Creatinine Ratio 15.6 (6-22); Blood Urea Nitrogen 12 mg/dL (9-20); Calcium 9.5 mg/dL (8.4-10.2); Carbon Dioxide 25 mmol/L (22-32); Chloride 102 mmol/L (98-107); Estimated Glomerular Filt Rate > 60 mL/min (>60); Glucose 98 mg/dL (70-99); HEMOLYSIS < 15 (0-50); Potassium 4.7 mmol/L (3.4-5.1); Sodium 137 mmol/L (137-145)
[2024-08-19 10:33] LABS: Prostate Specific Antigen Scrn 0.616 ng/mL (0.1-4.0)
== END ==
PROVIDERS: Urology; PCP Internal Medicine; Referring Provider Internal Medicine; Visit Provider Internal Medicine
DX: E11.42 Type 2 diabetes mellitus with diabetic polyneuropathy (principal); Z12.5 Encounter for screening for malignant neoplasm of prostate; E78.2 Mixed hyperlipidemia
CPT/HCPCS: 36415; 80048; 83036; G0103

== ENCOUNTER → 2024-10-08 08:23 | Outpatient (CLI) | payer MEDICARE, OTHER, SELFPAY ==
[2024-10-08 10:25] LABS: Prostate Specific Antigen 0.626 ng/mL (0.10-4.00)
== END ==
PROVIDERS: PCP Internal Medicine; Referring Provider Urology; Visit Provider Urology
DX: R97.20 Elevated prostate specific antigen [PSA] (principal); N40.1 Benign prostatic hyperplasia with lower urinary tract symptoms; N13.8 Other obstructive and reflux uropathy; Z12.5 Encounter for screening for malignant neoplasm of prostate; Z68.27 Body mass index [BMI] 27.0-27.9, adult
CPT/HCPCS: 36415; 51798; 81002; 84153; 99213

== ENCOUNTER → 2025-02-24 06:50 | Outpatient (CLI) | payer MEDICARE, OTHER, SELFPAY ==
[2025-02-24 07:57] LABS: Hematocrit 40.7 % (41-53); Hemoglobin 13.9 g/dL (13.5-17.5); Mean Corpuscular HGB Conc 34.2 % (30-36); Mean Corpuscular Hemoglobin 31.6 PG (26-34); Mean Corpuscular Volume 92.2 fL (80-100); Platelet Count 201 X10^3/uL (150-400)
[2025-02-24 08:10] LABS: Hemoglobin A1C% w Est Avg Glu 5.9 % (4.0-6.0)
[2025-02-24 08:34] LABS: Blood Urea Nitrogen 16 mg/dL (9-20); Calcium 9.2 mg/dL (8.4-10.2); Carbon Dioxide 24 mmol/L (22-32); Chloride 104 mmol/L (98-107); Cholesterol 195 mg/dL (140-199); Estimated Glomerular Filt Rate > 60 mL/min (>60); Glucose 109 mg/dL (70-99); HDL Cholesterol 56 mg/dL (40-60); HEMOLYSIS < 15 (0-50); Potassium 4.1 mmol/L (3.4-5.1); Sodium 137 mmol/L (137-145); Triglycerides 144 mg/dL (35-150)
[2025-02-24 09:06] LABS: TSH w/ Reflex to FT4 4.35 uIU/mL (0.47-4.68)
[2025-02-24 09:51] LABS: Microalbumi Creatinin Ratio Ur 7.0 ug/mg CR (<30)
== END ==
PROVIDERS: PCP Internal Medicine; Referring Provider Internal Medicine; Visit Provider Internal Medicine
DX: E78.5 Hyperlipidemia, unspecified (principal); E11.69 Type 2 diabetes mellitus with other specified complication; E78.2 Mixed hyperlipidemia; I10 Essential (primary) hypertension
CPT/HCPCS: 36415; 80048; 80061; 82043; 82570; 83036; 84443; 84450; 85027